=== PATIENT | male | born 1980 | race Two or more races ===

== ENCOUNTER 2020-05-13 09:42 | Emergency (ER) | payer OTHER ==
[~2020-05-13] VITALS: Ht 170.2 cm; Wt 122.0 kg
[~2020-05-13 09:42] MED LIST: CEPH500 PO; FAMO20 PO; IBUP600 PO; KETO10 PO; OXYACE5T PO; PENVK500 PO; PROM25 PO; Percocet 5-3251 EACH PO; RANI150 PO; RXTRAM50 PO; SULTRIDS PO; TAMS.4ER PO; TRAM50 PO
== END 2020-05-13 12:30 | disposition home or self-care (01) ==
LOC: ER 09:42
DX: G56.01 Carpal tunnel syndrome, right upper limb (principal); G56.21 Lesion of ulnar nerve, right upper limb; F17.210 Nicotine dependence, cigarettes, uncomplicated
CPT/HCPCS: 72040; 99283-25

== ENCOUNTER 2020-10-08 06:21 | Day surgery (SDC) | payer OTHER ==
[~2020-10-08] VITALS: Ht 170.2 cm; Wt 129.2 kg
[~2020-10-08 06:21] MED LIST changes: +NAPR220 PO
--- NOTE | 2020-10-08 08:09 | NUR ---
10/08/20 [address] HERNANDEZ, PT DOES NOT NEED SLING.
== END 2020-10-08 08:10 | disposition home or self-care (01) ==
LOC: ORSCSDS 06:21
PROVIDERS: Orthopaedic Surgery
PROC: 01N50ZZ Release Median Nerve, Open Approach (ICD-10-PCS; principal; 2020-10-08 07:30)
DX: G56.01 Carpal tunnel syndrome, right upper limb (principal); Z87.891 Personal history of nicotine dependence
CPT/HCPCS: J2250; J2704; J3010; J7120

== ENCOUNTER 2021-04-06 13:01 | Emergency (ER) | payer OTHER ==
[~2021-04-06] VITALS: Ht 170.2 cm; Wt 127.0 kg
[2021-04-06 15:29] LABS: Source, Urine Clean Catch
[2021-04-06 15:36] LABS: Appearance, Urine Clear (Clear); Bilirubin, Urine Neg (Neg); Blood, Urine 2+ (Neg); Color, Urine Yellow (P-Yellow); Glucose Qualitative, Urine Neg (Neg); Ketones, Urine 4+ (Neg); Leukocyte Esterase, Urine Neg (Neg); Nitrite, Urine Neg (Neg); Protein, Urine Neg (Neg); Urobilinogen, Urine NORM (Normal)
[2021-04-06 15:50] LABS: BASOPHILS ABSOLUTE AUTO 0.04 K/mm3 (0.00-0.23); BASOPHILS PERCENT AUTO 0 % (0-2); EOSINOPHILS ABSOLUTE AUTO 0.01 K/mm3 (0.00-0.68); EOSINOPHILS PERCENT AUTO 0 % (0-6); Hemoglobin 18.8 g/dL (13.5-17.5); IMMATURE GRAN ABSOLUTE AUTO 0.06 K/mm3 (0.00-0.10); IMMATURE GRAN PERCENT AUTO 1 % (0-1); LYMPHOCYTES ABSOLUTE AUTO 1.34 K/mm3 (0.84-5.20); LYMPHOCYTES PERCENT AUTO 12 % (21-46); MONOCYTES ABSOLUTE AUTO 0.28 K/mm3 (0.16-1.47); MONOCYTES PERCENT AUTO 3 % (4-13); Mean Corpuscular HGB Conc 33.6 g/dL (31.5-36.5); Mean Corpuscular Volume 86 fL (80-100); Mean Platelet Volume 10.8 fL (9.1-12.4); NEUTROPHILS ABSOLUTE AUTO 9.39 K/mm3 (1.96-9.15); NEUTROPHILS PERCENT AUTO 84 % (41-73); Platelet Count 251 K/mm3 (150-400); RDW Coefficient Variation 12.9 % (11.7-14.2); RDW Standard Deviation 40.3 fL (35.1-46.3); Red Blood Cell Count 6.49 M/mm3 (4.30-5.90); White Blood Cell Count 11.12 K/mm3 (4.00-11.30)
[2021-04-06 15:53] LABS: Bacteria Mod /hpf; Red Blood Cells, Urine Rare /hpf (0-2); Squamous Epithelial Cells Not Seen /hpf (Few); White Blood Cells, Urine Rare /hpf (0-5)
[2021-04-06 16:09] LABS: Alanine Aminotransfer (ALT/SGP 34 U/L (12-78); Albumin, Blood 4.9 g/dL (3.4-5.0); Alk Phos 124 U/L (50-136); Anion Gap 10 mmol/L (6-16); Aspartate Aminotrans (AST/SGOT 28 U/L (12-37); Bilirubin, Total 0.7 mg/dL (0.1-1.0); Blood Urea Nitrogen 11 mg/dL (8-24); CO2, Blood 19 mmol/L (21-32); Calcium, Blood 9.7 mg/dL (8.5-10.1); Chloride, Blood 103 mmol/L (98-108); Creatinine, Blood 0.73 mg/dL (0.60-1.20); Globulin, Blood 4.7 g/dL (2.2-4.0); Glomerular Filtration Rate >60 (60-); Glucose, Blood 85 mg/dL (70-99); Potassium, Blood 4.3 mmol/L (3.5-5.5); Sodium, Blood 132 mmol/L (136-145); Total Protein, Blood 9.6 g/dL (6.4-8.2)
== END 2021-04-06 19:18 | disposition home or self-care (01) ==
LOC: ER 13:01
PROVIDERS: Physician Assistant
DX: R10.9 Unspecified abdominal pain (principal); R11.2 Nausea with vomiting, unspecified; R19.7 Diarrhea, unspecified; F17.210 Nicotine dependence, cigarettes, uncomplicated
CPT/HCPCS: 36415; 71045; 74177; 76705; 80053; 81001; 83690; 84484; 85025; 87086; 93005; 93010; 96361; 96374-59; 96375; 96376; 99284-25; A9270; J2405; J3010; J7030; Q9967

== ENCOUNTER 2022-05-16 09:33 | Emergency (ER) | payer OTHER ==
[~2022-05-16] VITALS: Ht 170.2 cm; Wt 122.5 kg
[2022-05-16 11:19] LABS: BASOPHILS ABSOLUTE AUTO 0.05 K/mm3 (0.00-0.23); BASOPHILS PERCENT AUTO 0 % (0-2); EOSINOPHILS ABSOLUTE AUTO 0.02 K/mm3 (0.00-0.68); EOSINOPHILS PERCENT AUTO 0 % (0-6); Hemoglobin 15.6 g/dL (13.5-17.5); IMMATURE GRAN ABSOLUTE AUTO 0.06 K/mm3 (0.00-0.10); IMMATURE GRAN PERCENT AUTO 1 % (0-1); LYMPHOCYTES PERCENT AUTO 14 % (21-46); MONOCYTES ABSOLUTE AUTO 0.42 K/mm3 (0.16-1.47); MONOCYTES PERCENT AUTO 4 % (4-13); Mean Corpuscular HGB 28.2 pg (26.0-34.0); Mean Corpuscular HGB Conc 31.8 g/dL (31.5-36.5); Mean Corpuscular Volume 88 fL (80-100); Mean Platelet Volume 10.8 fL (9.1-12.4); NEUTROPHILS ABSOLUTE AUTO 9.11 K/mm3 (1.96-9.15); NEUTROPHILS PERCENT AUTO 81 % (41-73); Platelet Count 225 K/mm3 (150-400); RDW Coefficient Variation 13.6 % (11.7-14.2); RDW Standard Deviation 44.1 fL (35.1-46.3); Red Blood Cell Count 5.54 M/mm3 (4.30-5.90); White Blood Cell Count 11.26 K/mm3 (4.00-11.30)
[2022-05-16 11:35] LABS: Albumin/Globulin Ratio 1.1 (0.8-1.8); Bilirubin, Total 0.4 mg/dL (0.1-1.0); Bun/Creatinine Ratio 8.3 (12.0-20.0); Creatinine, Blood 0.72 mg/dL (0.60-1.20); Globulin, Blood 3.5 g/dL (2.2-4.0); Total Protein, Blood 7.5 g/dL (6.4-8.2)
[2022-05-16 14:31] LABS: Source, Urine Clean Catch
[2022-05-16 14:44] LABS: Appearance, Urine Clear (Clear); Bilirubin, Urine Neg (Neg); Blood, Urine Neg (Neg); Color, Urine Yellow (P-Yellow); Glucose Qualitative, Urine Neg (Neg); Ketones, Urine Neg (Neg); Leukocyte Esterase, Urine Neg (Neg); Nitrite, Urine Neg (Neg); Protein, Urine Neg (Neg); Specific Gravity, Urine 1.005 (1.003-1.022); Urobilinogen, Urine NORM (Normal)
[2022-05-16] MEDS ORDERED: ONDA4ODT MM (15:21)
[2022-05-16] MEDS ORDERED: CYCL10 PO (15:21)
== END 2022-05-16 15:40 | disposition home or self-care (01) ==
LOC: ER 09:33
PROVIDERS: Student in an Organized Health Care Education/Training Program
DX: R10.9 Unspecified abdominal pain (principal); F17.210 Nicotine dependence, cigarettes, uncomplicated; R11.2 Nausea with vomiting, unspecified
CPT/HCPCS: 36415; 74176; 80053; 81003; 83690; 85025; A9270; J1885; J2405

== ENCOUNTER 2022-08-25 08:16 | Day surgery (SDC) | payer OTHER ==
[~2022-08-25] VITALS: Ht 170.2 cm; Wt 125.0 kg
[~2022-08-25 08:16] MED LIST changes: +CYCL10 PO; +ONDA4ODT MM
--- NOTE | 2022-08-25 09:36 | NUR ---
History, Chart, Medications and Allergies reviewed before start of procedure. Patient confirms NPO status and agrees with scheduled surgery. Patient States Post-Procedure ride home has been arranged. PT RING PLACED IN BELONGING BAG UNDERNEATH BED FOR SAFEKEEPING. PT LEFT EAR PIERCING TAPED, WAIVER SIGNED AND DR TAPIA NOTIFIED.
--- NOTE | 2022-08-25 10:22 | NUR ---
2 NECKLACES NOTED AND STORED IN PATIENT BELONGING BAG FOR SAFEKEEPING.
--- NOTE | 2022-08-25 11:58 | NUR ---
TOTAL IV FLUIDS 1300CC, BLOOD LOSS MINIMAL, NO URINE MEASURED.
--- NOTE | 2022-08-25 12:19 | NUR ---
INCISION SITE TO RIGHT POSTERIOR SHOULDER NOTED TO HAVE DERMABOND CLOSURE, CLEAN, DRY, INTACT. NO NOTED DRAINAGE, SWELLING, ERYTHEMA OR BRUISING. DENIES NAUSEA AND PAIN. NO C/O VERBALIZED. PO FLUIDS OFFERED. RIDE ARRANGED HOME WITH SIGNIFICANT OTHER.
--- NOTE | 2022-08-25 12:44 | NUR ---
PT REQUEST PAIN PILL C/O 10/27 PRESSURE PAIN TO RIGHT POSTERIOR SHOULDER.
--- NOTE | 2022-08-25 13:10 | NUR ---
1303- PATINET DENIES PAIN POST PO ANALGESIC. NO C/O VERBALIZED. VSS. GAIT STEADY. PATIENT VERBALIZES DESIRE TO DISCHARGE. NO CHANGE TO SURGICAL SITE NOTED. UP TO BR TO VOID, VOIDED WITHOUT DIFFICULT.
== END 2022-08-25 13:03 | disposition home or self-care (01) ==
LOC: ORSCMMR 08:16
PROVIDERS: Surgery
PROC: 0JBD0ZX Excision of Right Upper Arm Subcutaneous Tissue and Fascia, Open Approach, Diagnostic (ICD-10-PCS; principal; 2022-08-25 09:30)
DX: D17.1 Benign lipomatous neoplasm of skin and subcutaneous tissue of trunk (principal); Z87.891 Personal history of nicotine dependence; E66.01 Morbid (severe) obesity due to excess calories; Z68.41 Body mass index [BMI] 40.0-44.9, adult
CPT/HCPCS: 88304; A9270; J1100; J1885; J2250; J2405; J2704; J2795; J3010; J7120